=== PATIENT | female | born 1965 | race Caucasian/White ===

== ENCOUNTER 2016-08-06 11:06 | Day surgery (SDC) | payer BC ==
--- NOTE | 2016-08-04 12:22 | GHP ---
[f rep st] PREOP HISTORY AND PHYSICAL DATE OF SURGERY: 08/06/2016 at 12:45 p.m. SURGERY: Hysteroscopy, dilation and curettage, polypectomy with morcellator. DIAGNOSIS: Endometrial polyp and menometrorrhagia. HISTORY OF PRESENT ILLNESS: Patient is a 50-year-old, 4, para 3-0-1-3, with a longstanding h istory of long irregular cycles, approximately every 35 days. In the last 6 months, they have increa sed in volume as well as irregular in nature. She has multiple ones where she is bleeding 2 times a month, heavy bleeding with clots and significant cramps, and also feeling increased emotional labilit y because of the irregularity of her periods. She was originally evaluated and had an ultrasound in March of 2016. That ultrasound revealed a thickened endometrial lining which was 1.5 cm, and dur ing her workup, an endometrial biopsy was performed. The endometrial biopsy demonstrated proliferati ve endometrium with fragments of benign endometrial polyp. She was followed for a couple months and had a repeat ultrasound performed in June, and in June of the endometrial lining had increase d in size, was now 2.2 cm but no specific polyp was seen. Because of the inconsistency in the pathol ogy versus the ultrasound results, a decision was made to proceed with sonohysterogram in my office. This was performed last week. On sonohysterogram the uterus was normal. The endometrium was indeed thickened at 1.41 cm. Upper endometrium revealed a polypoid mass, 4 x 3 x 4 mm, which was seen carlos rly with the injection of the saline. Diagnosis of endometrial polyp was made as well as dysfunction al uterine bleeding and menometrorrhagia. Patient was given options and recommendation for surgical management versus medical management. Patient desires surgical management with a hysteroscopy D and C, and polypectomy. The patient was consented for the procedure today. She understands the risk and benefits. The risks including bleeding, infection, damage to the uterus including possible risk of perforation, damage to other organs if perforation were to occur, need for additional procedures with certain diagnosis. She understood these risks, benefits, and agreed to proceed. PAST GYNECOLOGICAL HISTORY: The patient has no significant past gynecological history except for his tory of irregular cycles every 35 days. She has used oral contraceptive pills and condoms for control. Most recently, her has had a vasectomy. PAST MEDICAL HISTORY: No past medical history except for hypotension which is considered normal. Shawn love has had syncopal episodes due to dehydration hypotension, none recently and has had extensive nikki p that was negative. PAST OBSTETRICAL HISTORY: Three spontaneous vaginal deliveries of viable males, largest was 9 pounds 3 ounces. Her children are 21, 17 and 14 respectively. No complications and she has had 1 missed a bortion. PAST SURGICAL HISTORY: Remote history of cosmetic surgery. No other surgeries. ALLERGIES: Aspirin. She had a rash as a child. She tolerates other NSAIDs fine. SOCIAL HISTORY: She is . She lives with her and her sons. 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 She denies tobacco and just social alcohol. No drug use and has moderate exerci se with yoga and swimming. FAMILY HISTORY: Her father has prostate cancer. Both parents have skin cancer. Grandfather had hea rt disease. Aunt had Graves disease. Mother has arthritis and her brother has bipolar disorder. OBJECTIVE: VITAL SIGNS: She is afebrile. Vital signs are stable. Blood pressure is 116/62, weight is 131 pounds. GENERAL: She is a well-developed, well-nourished, white female, in no acute distres s. LUNGS: Clear to auscultation bilaterally. HEART: Regular rate and rhythm. No murmurs. ABDOME N: Soft, nontender, nondistended. Normal bowel sounds. PELVIC: Normal external genitalia. Normal parous cervix. Uterus is mobile, anteverted, anteflexed. No masses and nontender. ASSESSMENT/PLAN: A 50-year-old, 4, para 3-0-1-3, with menometrorrhagia and ultrasound reveal ed an endometrial polyp and thickened endometrium. She will have a hysteroscopy dilation and curetta ge polypectomy. /[id number]/MODL
[2016-08-06] MEDS ORDERED: LIDOCAINE 1% 5 ML SDV ONE (11:41)
[2016-08-06] MEDS ORDERED: SILVER NITRATE APPLICATOR 1 APPL TP ONE (12:00)
[2016-08-06] MEDS ORDERED: LIDOCAINE 1% 5 ML SDV ID PRN (12:06)
[2016-08-06] MEDS ORDERED: LR 1,000 ML IV ONE (12:06)
[2016-08-06] MEDS ORDERED: CEFAZOLIN 1 GM/DEXTROSE/50 ML BAG IV ONE (12:31)
[2016-08-06] MEDS ORDERED: MIDAZOLAM 2 MG/2 ML VIAL ONE (12:31)
[2016-08-06] MEDS ORDERED: GLYCOPYRROLATE 0.2 MG/1 ML VIAL ONE (12:52)
[2016-08-06] MEDS ORDERED: METOCLOPRAMIDE 10 MG/2 ML VIAL ONE (12:52)
[2016-08-06] MEDS ORDERED: LIDOCAINE 2% 5 ML SDV ONE (12:52)
[2016-08-06] MEDS ORDERED: fentaNYL 100 MCG/2 ML INJ ONE (12:53)
[2016-08-06] MEDS ORDERED: PROPOFOL 200 MG/20 ML VIAL ONE (13:06)
[2016-08-06] MEDS ORDERED: DEXAMETHASONE 4 MG/ML VIAL ONE (13:06)
[2016-08-06] MEDS ORDERED: ONDANSETRON 4 MG/2 ML VIAL ONE (13:07)
[2016-08-06] MEDS ORDERED: HYDROCODONE/APAP 5/325 TAB PO PRN (14:44)
[2016-08-06] MEDS ORDERED: KETOROLAC 30 MG/1 ML SDV IVP PRN (14:46)
--- NOTE | 2016-08-06 15:18 | GOP ---
[f rep st] OPERATIVE REPORT DATE OF OPERATION: 08/06/2016 SURGEON: Kelley Rolon MD ANESTHESIA: General anesthesia. ANESTHESIOLOGIST: Justin Pruett MD PREOPERATIVE DIAGNOSIS: Dysfunctional uterine bleeding and endometrial polyps. POSTOPERATIVE DIAGNOSIS: PROCEDURE PERFORMED: Hysteroscopy, dilation and curettage, polypectomy with morcellator. FINDINGS: SPECIMENS: Pathologic specimen will be endometrial curettings and endometrial polyps. ESTIMATED BLOOD LOSS: For the procedure was less than 20 cc. INDICATIONS: This patient is a 50-year-old, 4, para 3-0-1-3 with a longstanding history of l iram and irregular cycles usually every 35 days. In the last 6 months, they have increased in volume a s well as irregular in nature, having multiple cycles throughout a month. She bleeds heavy with clots and significant cramps. When she was evaluated her ultrasound revealed a thickened endometrial linin g. She had an endometrial biopsy, which revealed proliferative endometrium and fragments of benign po lyp. She was observed for a couple months and repeat ultrasound revealed increasing thickened lining, and a further ultrasound evaluation with a saline infusion revealed an endometrial polyp. Patient wa s given treatment options of medical management versus surgical management. She desired definitive ma nagement with a hysteroscopy, D and C, and polypectomy. She was consented for the procedure. She unde rstood the risks and benefits, the risks including bleeding, infection, damage to the uterus includin g possible risk of perforation, damage to other organs if perforation were to occur, risk of needing additional procedures and incomplete treatment of her bleeding. She understood these risks, benefits, and agreed to proceed. DESCRIPTION OF PROCEDURE: Patient was taken into the operating room where she was placed under gener al anesthesia without difficulty. She was prepped and draped in the dorsal lithotomy position, and sh e had previously just voided, so her bladder was left alone. After a WHO time-out, an open-sided spec ulum was placed in the vagina, and an atraumatic tenaculum was used to grasp the anterior lip of the cervix. The uterus sounded to 9 cm. Cervix was progressively dilated with Beebe dilators to a #7. The Truclear hysteroscope was then gently advanced from the cervix to the fundus, and visualization of t he endometrial cavity was performed. There were multiple uterine polyps in the posterior wall of the uterus approximately two thirds up the wall approaching the area of the fundus. Both tubal ostia were visualized. The cervix was normal. There were no other abnormalities in the uterus. The polyp blade of the morcellator was placed through the operative channel of the hysteroscope. Window lock was perf ormed, and under direct visualization, the were morcellated, and the redundancy in the endometrium wa s reduced. Tubal ostia were again visualized. The uterus was normal. Bleeding was minimal. The scope was removed. A sharp curettage was then performed in a clockwise fashion until a gritty texture was p alpated throughout the entire uterus and endometrial curettings as well as the morcellator will be se nt for combined pathology. The tenaculum was removed. There was no bleeding on the anterior lip of th e cervix, and no bleeding from the os. The speculum was removed. The patient tolerated the procedure well. Sponge, lap, needle, and instrument counts were correct x2. The patient went to the recovery ro om in good condition. IV FLUIDS: 500 cc. URINE OUTPUT: Not measured. /[id number]/MODL
== END 2016-08-06 14:50 | disposition home or self-care (01) ==
LOC: FSGY 11:06
PROVIDERS: ATTEND Obstetrics & Gynecology
PROC: 0UDB8ZX Extraction of Endometrium, Via Natural or Artificial Opening Endoscopic, Diagnostic (ICD-10-PCS; principal; 2016-08-06 12:45)
DX: N92.0 Excessive and frequent menstruation with regular cycle (principal); N84.0 Polyp of corpus uteri
CPT/HCPCS: 58558; C1782; J0690; J1100; J2250; J2405; J2704; J2765; J3010

== ENCOUNTER → 2018-06-16 | Outpatient (CLI) | payer BC | LOC: FIMAGING 09:11 | PROVIDERS: ATTEND Obstetrics & Gynecology | DX: N64.52 Nipple discharge (principal) ==